=== PATIENT | female | born 1995 | race Hispanic/Latino ===

== ENCOUNTER 2018-01-06 16:46 | Observation (INO) | payer OTHER ==
[~2018-01-06] VITALS: Ht 149.9 cm; Wt 52.7 kg
[~2018-01-06 16:46] MED LIST: MICROGESTIN1 EAC1 PO
[2018-01-06 19:10] VITALS: BP 108/64
[2018-01-06 19:25] VITALS: BP 108/64
[2018-01-06] MEDS: ONDANSETRON HCL INJ 2 MG/ML VIAL IV PRN ×2 (20:06→23:56)
[2018-01-06] MEDS: MORPHINE SULFATE 2 MG/ML SYR IV PRN ×2 (20:06→23:56)
[2018-01-06] MEDS: SODIUM CHLORIDE 0.9% 1000ML 1,000 ML IV SCH ×2 (21:05→23:30)
[2018-01-06 21:13] LABS: BASOPHILS # (AUTO) 0.1 (0.0-0.1); BASOPHILS % 0.4 % (0.0-1.0); EOSINOPHILS % 0.4 % (0.0-6.0); HEMATOCRIT 38.8 % (34.2-44.1); HEMOGLOBIN 13.2 g/dL (12.0-16.0); LYMPHOCYTES # (AUTO) 1.9 (1.0-3.2); LYMPHOCYTES % 16.7 % (18.0-39.1); MEAN CORPUSCULAR HEMOGLOBIN 29.9 pg (28-32); MEAN CORPUSCULAR VOLUME 87.8 fL (81-99); MONOCYTES # (AUTO) 0.7 (0.2-0.8); NEUTROPHILS # (AUTO) 8.6 (2.1-6.9); NEUTROPHILS % 76.1 % (38.7-80.0); PLATELET COUNT 256 x10e3/uL (140-360); RED BLOOD COUNT 4.42 x10e6/uL (3.6-5.1); RED CELL DISTRIBUTION WIDTH 13.2 % (11.7-14.4)
[2018-01-06 21:22] LABS: ANION GAP 14.9 mmol/L (8-16); BLOOD UREA NITROGEN 10 mg/dL (7-26); BUN/CREATININE RATIO 14 (6-25); CALCIUM 9.4 mg/dL (8.4-10.2); CARBON DIOXIDE 22 mmol/L (22-29); CHLORIDE 107 mmol/L (98-107); CREATININE, SERUM 0.72 mg/dL (0.57-1.11); EST GLOMERULAR FILTRATION RATE > 60 ML/MIN (60-); GLUCOSE 82 mg/dL (74-118); POTASSIUM 3.9 mmol/L (3.5-5.1); SODIUM 140 mmol/L (136-145)
[2018-01-06] MEDS ORDERED: IOPAMIDOL 370 MG/ML 200 ML INFUS..BTL INJ ONE (22:48)
[2018-01-06] MEDS ORDERED: SODIUM CHLORIDE 0.9% 50ML 50 ML ONE (22:48)
--- NOTE | 2018-01-06 23:18 | Diagnostic Imaging Report ---
ADDENDUM #1 The right ovarian corpus luteum/hemorrhagic cyst measures approximately 2.1 cm. Signed by: Dr. Brice Rhodes MD on 01/08/2018 2:54 PM ORIGINAL REPORT EXAM: CT Abdomen and Pelvis WITH contrast INDICATION: Acute abdominal pain COMPARISON: None. TECHNIQUE: Abdomen and pelvis were scanned utilizing a multidetector helical scanner from the lung base to the pubic symphysis after administration of IV contrast. Coronal and sagittal reformations were obtained. Routine protocol was performed. Scan was performed when during portal venous phase. IV CONTRAST: 100 mL of Isovue-370 ORAL CONTRAST: Water RADIATION DOSE: Total DLP: 167.87 mGy*cm Estimated effective dose: (DLP x 0.015 x size factor) mSv COMPLICATIONS: None FINDINGS: LINES and TUBES: None. LOWER THORAX: Unremarkable HEPATOBILIARY: No focal hepatic lesions. No biliary ductal dilation. GALLBLADDER: No radio-opaque stones or sludge. No wall thickening. SPLEEN: No splenomegaly. PANCREAS: No focal masses or ductal dilatation. ADRENALS: No adrenal nodules KIDNEYS/URETERS: Kidneys enhance symmetrically. No hydronephrosis. No cystic or solid mass lesions. No stones. GI TRACT: No abnormal distention, wall thickening, or evidence of bowel obstruction. Appendix is normal. PELVIC ORGANS/BLADDER: There is a peripherally enhancing right ovarian corpus luteum cyst versus hemorrhagic cyst best noted on coronal series 301, image 37 and axial series 2, image 56. LYMPH NODES: No lymphadenopathy. VESSELS: Parametrial vessels and bilateral gonadal vein engorgement PERITONEUM / RETROPERITONEUM: Small amount of free fluid in the pelvis. BONES: Unremarkable. SOFT TISSUES: Unremarkable. IMPRESSION: 1. Acute abdominal pain may be related to right ovarian corpus luteum cyst versus hemorrhagic cyst. 2. The presence of a small amount pelvic fluid may suggest rupture of the cyst. 3. Findings in the parametrial and bilateral gonadal veins are suggestive of pelvic congestion syndrome Signed by: Dr. Chago Rosa M.D. on 01/06/2018 11:14 PM
[2018-01-07] VITALS (10 sets, daily range): BP systolic 101–120; BP diastolic 57–70
[2018-01-07] MEDS: ONDANSETRON HCL INJ 2 MG/ML VIAL IV PRN ×4 (06:15→22:10)
[2018-01-07] MEDS: MORPHINE SULFATE 2 MG/ML SYR IV PRN (06:15)
[2018-01-07] MEDS: HYDROMORPHONE 1MG/1ML INJ IV PRN ×3 (09:30→22:10)
--- NOTE | 2018-01-07 10:09 | Diagnostic Imaging Report ---
EXAMINATION: Head CT HISTORY: Headache, dizziness, blurry vision COMPARISON: None. TECHNIQUE: Multidetector axial images were obtained without contrast from the foramen magnum to the vertex . The images were reconstructed using brain and bone algorithms. Thin section brain images were reformatted into coronal and sagittal planes. Intravenous contrast: None. Motion/streaking artifact limits the evaluation of the skull base and posterior cranial fossa. FINDINGS: Parenchyma: 1. No abnormal densities. 2. No mass or hemorrhage. No CT evidence of acute territorial vascular insult. Extra-axial spaces:No abnormal density. No extra-axial fluid collections Brain volume: Normal for age. Ventricles: No hydrocephalus or displacement. Arteries: No density suggestive of thrombus. Dural sinuses: No abnormal density. Extra-axial spaces: No abnormal density. Foramen magnum: No mass, Chiari malformation, or basilar invagination. Sella: No obvious mass. Paranasal/mastoid sinuses: Imaged portions unremarkable. Skull/Scalp: No lytic or blastic lesions. No fractures. IMPRESSION: Normal head CT. Signed by: Dr. Dulce Ambrocio M.D. on 01/07/2018 10:05 AM
[2018-01-07] MEDS: SODIUM CHLORIDE 0.9% 1000ML 1,000 ML IV SCH ×2 (10:10→19:15)
--- NOTE | 2018-01-07 11:03 | History and Physical ---
A 22-year-old female who comes in with acute abdominal pain. HISTORY OF PRESENT ILLNESS: This is Ms. Jessica Lanier, a 22-year-old female, who was seen in the clinic about 2 days prior to admission. The patient had abdominal pain right lower quadrant and the patient came in yesterday dehydrated. Had an episode of syncope and also, episode of syncope and collapse. She had lost about 30 minutes of time according to her mother. Patient came in, was directly admitted for acute abdominal pain. PAST MEDICAL HISTORY: History of fibroadenoma of the breast. SURGICAL HISTORY: History of removal of fibroadenoma of the breast. Otherwise noncontributory. REVIEW OF SYSTEMS: Negative for chest pain. Positive for some shortness of breath. Positive for nausea and vomiting. No diarrhea, no constipation, no rectal bleeding, no hematochezia, no hematemesis. Positive for syncope and collapse. Positive for blurry vision. Positive for diplopia. No auditory changes. Positive for headaches. EXAMINATION VITAL SIGNS: Temperature is 98.3, blood pressure is 101/59, low. HEENT: Normocephalic, atraumatic. Pupils are reactive to light and accommodation. CVS: S1, S2 normal. Regular rate and rhythm. ABDOMEN: Tender with rebound tenderness to right lower quadrant. EXTREMITIES: No clubbing, no cyanosis, no edema. LABORATORY VALUES: Initial white count is 11,000, hemoglobin 13.2, hematocrit 38.8. Chemistry, sodium is 140, potassium is 3.9, BUN of 10, creatinine 0.02, EGFR of 60. IMAGING STUDIES: CT of the abdomen and pelvis that was done showed right ovarian corpus lithium cyst versus hemorrhagic cyst and small amount of pelvic fluid suggesting rupture of the cyst. Also, finding of parametrium in the bilateral gonadal veins suggestive of pelvic congestion syndrome. ASSESSMENT 1. Right abdominal pain. 2. Right ovarian cyst, status post rupture. 3. Dizziness, syncope, and collapse. Patient has been given fluids. Will continue fluids on her and do a CT of the brain to rule out any pathology. Started back on fluid and possible discharge today evening or in the morning. Further recommendation per clinical course. Continue monitor patient. The patient is advised to also follow up with an ANNUAL [employer]EN[employer]GER for continuance of her control pill. Job#: [id number] CQ
[2018-01-08] VITALS (8 sets, daily range): BP systolic 92–112; BP diastolic 50–68
[2018-01-08] MEDS: HYDROMORPHONE 1MG/1ML INJ IV PRN ×3 (04:21→15:04)
[2018-01-08] MEDS: ONDANSETRON HCL INJ 2 MG/ML VIAL IV PRN ×3 (04:21→15:03)
[2018-01-08] MEDS: SODIUM CHLORIDE 0.9% 1000ML 1,000 ML IV SCH ×3 (05:42→22:24)
[2018-01-08] MEDS ORDERED: PROMETHAZINE 12.5MG/ NACL 0.9% 12.5 MG/50 ML BAG IV PRN (16:45)
[2018-01-08] MEDS: DICYCLOMINE HCL 20 MG TAB PO SCH ×2 (17:30→22:24)
--- NOTE | 2018-01-08 18:04 | Consultation ---
DATE OF CONSULTATION: January 08, 2018 REASON FOR CONSULTATION: The patient is a 22-year-old, 1, para 1 with last menstrual period on December 21, 2017 on no contraception who presents with a history of right lower quadrant pain for one week and nausea for one week. She has been taking Zofran with no relief and the pain had not improved, and she came to the hospital and was admitted for observation. She had a CT scan which revealed acute abdominal pain which may be related to right ovarian corpus luteum cyst versus hemorrhagic cyst, a small amount of pelvic fluid suggestive of rupture of the ovarian cyst, and findings in the perimetrium bilateral gonadal veins suggestive of pelvic congestion syndrome. PAST MEDICAL HISTORY: Remarkable for irritable bowel syndrome and question of endometriosis. PAST SURGICAL HISTORY: Remarkable for breast biopsy with excision of fibroadenoma of the breast approximately 3 years ago. ALLERGIES: KEFLEX GIVES HER HIVES. CURRENT MEDICATIONS: Prior to hospitalization, Zofran only. OB HISTORY: The patient had one full-term normal spontaneous vaginal delivery 4 years ago at [facility]. She denies any complications. [employer] EM[employer] REPRESENTATIVE HISTORY: Remarkable for taking Avixu-Rtz-Coderw Lo to help suppress cysts; however, she did not tolerate that medication because of nausea. PHYSICAL EXAMINATION VITAL SIGNS: Her latest temperature is 97.5, pulse 80, respirations 16, blood pressure 112/60. LUNGS: Clear. CARDIOVASCULAR: Regular rate and rhythm. There is mild right flank tenderness. There is mild right lower quadrant tenderness with no rebound. Bowel sounds are active to slightly hyperactive. PELVIC EXAM: Within normal limits. Cervix is parous without lesions. Uterus is normal size, anteverted, with mild cervical motion tenderness. Adnexa on the left side nontender, no masses. On the right side, mild tenderness, no palpable masses. As stated before, CT scan shows right corpus luteum versus hemorrhagic cyst measuring 2.1 cm. LABORATORY DATA: White count 11.3, hemoglobin 13.2, hematocrit 38.8, platelets 256,000, 76 neutrophils and 17 lymphocytes. Urinalysis not done. Chemistry: Sodium 140, potassium 3.9, chloride 107, bicarb 22, creatinine 0.72, glucose 82, BUN 10. IMPRESSION: Abdominal pain with nausea in a patient with history of ovarian cyst pain and endometriosis, but also history of irritable bowel syndrome. PLAN: I will get followup CBC, BMP or CMP and urinalysis. I suggest a trial of Bentyl for her IBS in case that is what is causing her problem. I would also recommend adding some Toradol 30 mg IV q.6 h. in addition to the Dilaudid to see if that will relieve her pain. Suggest a pelvic ultrasound to see what is happening with the cyst on the ovary. Thank you very much for consultation. If there are any questions, please do not hesitate to call me. Job#: [id number]
--- NOTE | 2018-01-08 19:21 | Diagnostic Imaging Report ---
EXAM: Transabdominal and Transvaginal Pelvic Ultrasound INDICATION: \S\abdominal pain \S\Y COMPARISON: CT abdomen and pelvis 01/06/2018 TECHNIQUE: Grayscale transverse and sagittal transabdominal and transvaginal images were obtained of the pelvis. Transvaginal imaging was medically necessary to better evaluate the endometrium and the adnexa. CLINICAL HISTORY: 22 year old A0; last menstrual period: 12/21/2017. FINDINGS: Uterus Orientation: Normal Size: 7.5 x 4.3 x 4.6 cm, Normal Mass: None. Prominent vessels surrounding the uterus. Cervix: Normal Endometrium: Thickness: 0.9 cm, Normal. Appearance: Homogeneous echotexture without focal thickening. Right ovary: Size: 2.8 x 2.5 x 2.7 cm Mass/Cyst: Few follicles measuring less than 2 cm Left ovary: Size: 2.5 x 2.0 x 1.9 cm Mass/Cyst: Few follicles measuring less than 2 cm Adnexa: Normal Cul-de-sac: No free fluid IMPRESSION: Unremarkable pelvic ultrasound exam. Previously noted right corpus luteal cyst has resolved. Signed by: Dr. Jillian Hsieh M.D. on 01/08/2018 7:18 PM
[2018-01-08] MEDS: KETOROLAC TROMETHAMINE 30 MG/ML VIAL IV PRN (23:18)
[2018-01-09] VITALS (7 sets, daily range): BP systolic 93–113; BP diastolic 51–57
[2018-01-09] MEDS: SODIUM CHLORIDE 0.9% 1000ML 1,000 ML IV SCH ×3 (03:45→19:13)
[2018-01-09 08:10] LABS: BASOPHILS % 0.4 % (0.0-1.0); EOSINOPHILS # (AUTO) 0.2 (0.0-0.4); EOSINOPHILS % 4.4 % (0.0-6.0); HEMATOCRIT 34.8 % (34.2-44.1); HEMOGLOBIN 11.5 g/dL (12.0-16.0); LYMPHOCYTES # (AUTO) 1.2 (1.0-3.2); LYMPHOCYTES % 22.6 % (18.0-39.1); MEAN CORPUSCULAR HEMOGLOBIN 29.1 pg (28-32); MEAN CORPUSCULAR VOLUME 88.1 fL (81-99); MONOCYTES # (AUTO) 0.5 (0.2-0.8); MONOCYTES % 8.6 % (4.4-11.3); NEUTROPHILS # (AUTO) 3.3 (2.1-6.9); NEUTROPHILS % 63.8 % (38.7-80.0); PLATELET COUNT 231 x10e3/uL (140-360); RED BLOOD COUNT 3.95 x10e6/uL (3.6-5.1); RED CELL DISTRIBUTION WIDTH 13.2 % (11.7-14.4)
[2018-01-09 08:32] LABS: ANION GAP 11.2 mmol/L (8-16); BLOOD UREA NITROGEN 6 mg/dL (7-26); BUN/CREATININE RATIO 8 (6-25); CALCIUM 8.8 mg/dL (8.4-10.2); CARBON DIOXIDE 25 mmol/L (22-29); CHLORIDE 107 mmol/L (98-107); CREATININE, SERUM 0.71 mg/dL (0.57-1.11); EST GLOMERULAR FILTRATION RATE > 60 ML/MIN (60-); GLUCOSE 79 mg/dL (74-118); POTASSIUM 4.2 mmol/L (3.5-5.1); SODIUM 139 mmol/L (136-145)
[2018-01-09] MEDS: DICYCLOMINE HCL 20 MG TAB PO SCH ×4 (08:32→20:22)
[2018-01-09] MEDS: HYDROMORPHONE 1MG/1ML INJ IV PRN (11:57)
[2018-01-09] MEDS: ONDANSETRON HCL INJ 2 MG/ML VIAL IV PRN (18:38)
[2018-01-09] MEDS: KETOROLAC TROMETHAMINE 30 MG/ML VIAL IV PRN (22:28)
[2018-01-10] VITALS: BP 92/51
[2018-01-10 04:00] VITALS: BP 100/51
[2018-01-10] MEDS: DICYCLOMINE HCL 20 MG TAB PO SCH (08:20)
[2018-01-10 08:26] VITALS: BP 113/70
[2018-01-10] MEDS ORDERED: diclofenac PO (09:00)
== END 2018-01-10 09:35 | disposition home or self-care (01) ==
LOC: IMCU 19:00
PROVIDERS: ADMIT Family Medicine; ATTEND Family Medicine
DX: N83.11 Corpus luteum cyst of right ovary (principal); K58.9 Irritable bowel syndrome, unspecified; E86.0 Dehydration
CPT/HCPCS: 36415 ×2; 70450; 74177; 76830; 80048 ×2; 81025; 85025 ×2; 96361; G0378 ×5; J1170 ×3; J1885 ×2; J2270 ×2; J2405 ×4; J7030 ×3; Q9967

== ENCOUNTER 2019-12-14 08:43 | Emergency (ER) | payer OTHER ==
[~2019-12-14] VITALS: Ht 149.9 cm; Wt 52.6 kg
[~2019-12-14 08:43] MED LIST changes: +diclofenac PO
--- OUTSIDE RECORDS SUMMARY | 2019-12-14 09:02 | XMS REPORT | Continuity of Care Document ---
Author Author [facility] t Organization [facility] Address [address] [place] [address] Phone Unavailable Care Team Providers Care Diesel Dinkey Operator Name Role Phone Ming JIANG MD PCP SAMI CARDONA Attphys Unavailable Ming JIANG Attphys Unavailable Ming JIANG Admphys Unavailable Payers Payer Name Policy Type Policy Number Effective Date Expiration Date Ming Medina o [id number] 2019 00:00:00 [facility] Umr Ppo [id number] 2013 00:00:00 [facility] Problems This patient has no known problems. Allergies, Adverse Reactions, Alerts Allergy Name Allergy Type Status Severity Reaction(s) Onset Date Inacti ve Date Treating Clinician Comments Source cephalexin DA Active AL 2018-12-25 00:00:00 [facility] Cephalexin Allergy to Substance Active 2018-01-06 00:00:00 [facility] No Known Allergies DA Active U 2015-09-13 00:00:00 [facility] Medications Ordered Medication Name Filled Medication Name Start Date Stop Da te Current Medication? Ordering Clinician Indication Dosage Frequency Signature (SIG) Comments Components Source Diclofenac Diclofenac Yes 75 Twice A Day [facility] Norethindrone A-E Estradiol (Microgestin) 1 Each Table t Norethindrone A-E Estradiol (Microgestin) 1 Each Tablet Yes 1 Daily [facility] Procedures Procedure Date / Time Performed Performing Clinician Sour e X-ray of chest, two views 2019-07-08 00:00:00 GEORGIE COLINDRES [facility] Encounters Start Date/Time End Date/Time Encounter Type Admission Type [facility] Care Department Encounter ID Source 2019-07-08 12:34:00 2019-07-08 15:40:00 Departed Emergency Room 1 SAMI CARDONA [facility] [id number] [facility] 2019-01-05 10:52:00 2019-01-05 10:52:00 Outpatient [facility]BL [id number] [facility] 2018-12-28 14:45:00 2018-12-28 14:45:00 Outpatient MHBL [facility]BL [id number] 2018-11-16 20:19:00 2018-11-16 20:19:00 Outpatient MHBL MHBL [id number] [facility] 2018-11-16 17:47:00 2018-11-16 17:47:00 Emergency E MHBL MHBL [id number] [facility] 2018-11-16 12:45:00 2018-11-16 12:45:00 Outpatient MHBL MHBL [id number] 2018-01-06 19:00:00 2018-01-10 09:35:00 Discharged Inpatient (obs) 3 NALINI JIANG [facility] [id number] [facility] Results Test Description Test Time Test Comments Results Result Comments Source Influenza Virus Types A,B Antigen 2019-07-08 14:41:00 Test Item Influenza Virus Types A,B Antigen (test code = 01664-9) NEGATIVE NEGATIVE [facility] 2 [id number] 14:36:00 [facility] [address] [place] [address] Patient Name: ALL SUMMERS MR #: [id number] : 1995 Age/Sex: 23/F Req #: [id number] Adm Physician: Ordered by: GEORGIE COLINDRES SCAFFOLD SETTER Report #: [id number] Location: ER Room/Bed: Procedure: 1227-00 56 DX/CHEST 2 VIEWS Exam Date: 07/08/19 Exam Time: 1 425 REPORT STATUS: Signed Chest, PA and lateral. History: Cough, chest pain. Comparison: None availabl e. Discussion: The cardiomediastinal silhouette and pulmonary vasculature are within normal limits. There is minimal left basilar atelectasis. No focal consolidation, sizable pleural effusion, or pneumothorax. There are no acute osseous abnormalities. IMPRESSION: No radiographic evidence of acute ca rdiopulmonary abnormality. Signed by: Fidel Almaguer MD on 07/08/2019 2: 37 PM Dictated By: FIDEL ALMAGUER MD 1437 Transcribed By: LAVELLE on 07/08/19 1437 CO PY TO: GEORGIE COLINDRES NP Group A Streptococcus Csnurq2449-84-90 14:31:00* Test Item Value Reference Range Interpretation Comments Group A Streptococcus Screen (test code = 58416-8) NEGATIVE NEG ATIVE [facility] [id number] 14:12:00* Test Item Value Reference Range Interpretation Comments Urine WBC (test code = 5821-4) NONE 0-5 [facility] [id number] 14:12:00* Test Item Value Reference Range Interpretation Comments Urine RBC (test code = 64849-1) NONE 0-5 [facility] Pqlwloga9345-79-01 14:12:00* Test Item Value Reference Range Interpretation Comments Urine Bacteria (test code = 04805-9) NONE NONE [facility] Epithelial [id number] 14:12:00 * Test Item Value Reference Range Interpretation Comments Urine Epithelial Cells (test code = 85870-3) FEW NONE [facility] Lyuqt9638-46-33 14:00:00* Test Item Value Reference Range Interpretation Comments Sodium Level (test code = 2951-2) 138 136-145 [facility] Fhhjd3718-28-82 14:00:00* Test Item Value Reference Range Interpretation Comments Potassium Level (test code = 2823-3) 3.8 3.5-5.1 [facility] CenterChloride Bunos9760-46-88 14:00:00* Test Item Value Reference Range Interpretation Comments Chloride Level (test code = 2075-0) 104 98-107 [facility] CenterCarbon Dioxide Fakdw8820-62-33 14:00:00* Test Item Value Reference Range Interpretation Comments Carbon Dioxide Level (test code = 2028-9) 23 22-29 [facility] CenterAnion Jta2070-71-23 14:00:00* Test Item Value Reference Range Interpretation Comments Anion Gap (test code = 54971-6) 14.8 8-16 [facility] Urea Viimwtlx3108-04-46 14:00:00* Test Item Value Reference Range Interpretation Comments Blood Urea Nitrogen (test code = 3094-0) 7 7-26 [facility] CenterCreatinine2019-12-27 14:00:00* Test Item Value Reference Range Interpretation Comments Creatinine (test code = 2160-0) 0.77 0.57-1.11 [facility] CenterBUN/Creatinine Nabfj5704-45-62 14:00:00* Test Item Value Reference Range Interpretation Comments BUN/Creatinine Ratio (test code = 3097-3) 9 6-25 [facility] CenterEstimat Glomerular Filtration Rate 2019-07-08 14:00:00* Test Item Value Reference Range Interpretation Comments Estimat Glomerular Filtration Rate (test code = 971482011) > 60 >60 Ranges were taken from the National Kidney Disease Education Program and the [facility] literature.Reference ranges:60 or greater: Irehio61-76 ( for 3 consecutive months): Chronic kidney disease 15 or less: Kidney failureLaredo Medical CenterGlucose Zinwl9007-89-69 14:00:00* Test Item Value Reference Range Interpretation Comments Glucose Level (test code = DRD0570) 100 74-118 [facility] CenterCalcium Sirqc9230-27-15 14:00:00* Test Item Value Reference Range Interpretation Comments Calcium Level (test code = 54338-8) 9.3 8.4-10.2 [facility] CenterTotal Sozbrgagp2066-73-40 14:00:00* Test Item Value Reference Range Interpretation Comments Total Bilirubin (test code = 1975-2) 0.3 0.2-1.2 [facility] CenterAspartate Amino Transf (AST/SGOT) 2019-07-08 14:00:00* Test Item Value Reference Range Interpretation Comments Aspartate Amino Transf (AST/SGOT) (test code = Aspartate Amino Transf (AST/SGOT)) 25 5-34 [facility] CenterAlanine Aminotransferase (ALT/SGPT) 2019-07-08 14:00:00* Test Item Value Reference Range Interpretation Comments Alanine Aminotransferase (ALT/SGPT) (test code = 1742-6) 36 0-55 [facility] CenterTotal Okfrlkf2569-08-30 14:00:00* Test Item Value Reference Range Interpretation Comments Total Protein (test code = 2885-2) 8.6 6.5-8.1 H [facility] CenterAlbumin2019-12-27 14:00:00* Test Item Value Reference Range Interpretation Comments Albumin (test code = 1751-7) 4.2 3.5-5.0 [facility] CenterGlobulin2019-12-27 14:00:00* Test Item Value Reference Range Interpretation Comments Globulin (test code = 40208-2) 4.4 2.3-3.5 H [facility] CenterAlbumin/Globulin Adfqf5057-44-41 14:00:00 * Test Item Value Reference Range Interpretation Comments Albumin/Globulin Ratio (test code = 1759-0) 1.0 0.8-2.0 [facility] CenterAlkaline Jigqmizjxap4391-82-28 14:00:00* Test Item Value Reference Range Interpretation Comments Alkaline Phosphatase (test code = 6768-6) 142 40-150 [facility] CenterUrine Mzkgm5485-80-21 13:45:00* Test Item Value Reference Range Interpretation Comments Urine Color (test code = 5778-6) YELLOW YELLOW [facility] CenterUrine Rikemmf8716-66-82 13:45:00* Test Item Value Reference Range Interpretation Comments Urine Clarity (test code = 86959-3) CLEAR CLEAR [facility] Specific Wofkwtl0725-77-04 13:45:00 * Test Item Value Reference Range Interpretation Comments Urine Specific [place] (test code = 5811-5) 1.020 1.010-1.02 5 [facility] CenterU[facility] mZ8722-67-84 13:45:00* Test Item Value Reference Range Interpretation Comments Urine pH (test code = 60985-4) 8.5 5-7 [facility] Leukocyte Znhbyfld1623-64-70 13:45:00* Test Item Value Reference Range Interpretation Comments Urine Leukocyte Esterase (test code = 15631-6) NEGATIVE NEGATIV E [facility] Nasnpel8155-20-68 13:45:00* Test Item Value Reference Range Interpretation Comments Urine Nitrite (test code = 28156-0) NEGATIVE NEGATIVE [facility] CenterU[facility] Lwcrhaq9517-63-98 13:45:00* Test Item Value Reference Range Interpretation Comments Urine Protein (test code = 11474-4) TRACE NEGATIVE H [facility] Glucose (UA)2019-07-08 13:45:00* Test Item Value Reference Range Interpretation Comments Urine Glucose (UA) (test code = 83354-8) NEGATIVE NEGATIVE [facility] CenterU[facility] Bqmpagt5267-19-49 13:45:00* Test Item Value Reference Range Interpretation Comments Urine Ketones (test code = 31673-6) NEGATIVE NEGATIVE [facility] Xbnliawnfxny4300-19-28 13:45:00* Test Item Value Reference Range Interpretation Comments Urine Urobilinogen (test code = 74186-7) 1 0.2-1 [facility] Center[facility] Jzibaotst8909-78-89 13:45:00* Test Item Value Reference Range Interpretation Comments Urine Bilirubin (test code = 1977-8) NEGATIVE NEGATIVE [facility] CenterUrine Bphkf6447-88-05 13:45:00* Test Item Value Reference Range Interpretation Comments Urine Blood (test code = 83815-2) TRACE NEGATIVE [facility] CenterU[facility] Sict0518-41-75 13:44:00* Test Item Value Reference Range Interpretation Comments Urine Test (test code = 2106-3) NEGATIVE NEGATIVE [facility] CenterWhite Blood Xpgqm1545-52-31 13:43:00* Test Item Value Reference Range Interpretation Comments White Blood Count (test code = 6690-2) 8.86 4.8-10.8 [facility] CenterRed Blood Tdyvk3924-42-78 13:43:00* Test Item Value Reference Range Interpretation Comments Red Blood Count (test code = 789-8) 4.54 3.6-5.1 [facility] CenterHemoglobin2019-12-27 13:43:00* Test Item Value Reference Range Interpretation Comments Hemoglobin (test code = 17322-8) 11.9 12.0-16.0 L [facility] CenterHematocrit2019-12-27 13:43:00* Test Item Value Reference Range Interpretation Comments Hematocrit (test code = 4544-3) 36.4 34.2-44.1 [facility] CenterMean Corpuscular Cujhmv2828-93-26 13:43:00* Test Item Value Reference Range Interpretation Comments Mean Corpuscular Volume (test code = 787-2) 80.2 81-99 L [facility] CenterMean Corpuscular Moqtzbpfnr6787-71-98 13:43:00* Test Item Value Reference Range Interpretation Comments Mean Corpuscular Hemoglobin (test code = 785-6) 26.2 28-32 L [facility] CenterMean Corpuscular Hemoglobin Concent 2019-07-08 13:43:00* Test Item Value Reference Range Interpretation Comments Mean Corpuscular Hemoglobin Concent (test code = 786-4) 32.7 31-35 [facility] CenterRed Cell Distribution Vcokh2981-52-74 13:43:00* Test Item Value Reference Range Interpretation Comments Red Cell Distribution Width (test code = 42789-2) 14.8 11.7 -14.4 H [facility] CenterPlatelet Ichyh1732-74-54 13:43:00* Test Item Value Reference Range Interpretation Comments Platelet Count (test code = 777-3) 457 140-360 H [facility] CenterNeutrophils (%) (Auto)2019-07-08 13:43:00 * Test Item Value Reference Range Interpretation Comments Neutrophils (%) (Auto) (test code = 76491-0) 84.5 38.7-80.0 H [facility] CenterLymphocytes (%) (Auto)2019-07-08 13:43:00 * Test Item Value Reference Range Interpretation Comments Lymphocytes (%) (Auto) (test code = 736-9) 5.1 18.0-39.1 L [facility] CenterMonocytes (%) (Auto)2019-07-08 13:43:00* Test Item Value Reference Range Interpretation Comments Monocytes (%) (Auto) (test code = 5905-5) 8.9 4.4-11.3 [facility] CenterEosinophils (%) (Auto)2019-07-08 13:43:00 * Test Item Value Reference Range Interpretation Comments Eosinophils (%) (Auto) (test code = 713-8) 0.5 0.0-6.0 [facility] CenterBasophils (%) (Auto)2019-07-08 13:43:00* Test Item Value Reference Range Interpretation Comments Basophils (%) (Auto) (test code = 706-2) 0.7 0.0-1.0 [facility] CenterIM GRANULOCYTES %2019-07-08 13:43:00* Test Item Value Reference Range Interpretation Comments IM GRANULOCYTES % (test code = IM GRANULOCYTES %) 0.3 0.0- 1.0 [facility] CenterNeutrophils # (Auto)2019-07-08 13:43:00* Test Item Value Reference Range Interpretation Comments Neutrophils # (Auto) (test code = 751-8) 7.5 2.1-6.9 H [facility] CenterLymphocytes # (Auto)2019-07-08 13:43:00* Test Item Value Reference Range Interpretation Comments Lymphocytes # (Auto) (test code = 35883-2) 0.5 1.0-3.2 L [facility] CenterMonocytes # (Auto)2019-07-08 13:43:00* Test Item Value Reference Range Interpretation Comments Monocytes # (Auto) (test code = 742-7) 0.8 0.2-0.8 [facility] CenterEosinophils # (Auto)2019-07-08 13:43:00* Test Item Value Reference Range Interpretation Comments Eosinophils # (Auto) (test code = 711-2) 0.0 0.0-0.4 [facility] CenterBasophils # (Auto)2019-07-08 13:43:00* Test Item Value Reference Range Interpretation Comments Basophils # (Auto) (test code = 704-7) 0.1 0.0-0.1 [facility] CenterAbsolute Immature Granulocyte (auto 2019-07-08 13:43:00* Test Item Value Reference Range Interpretation Comments Absolute Immature Granulocyte (auto (ofelia t code = Absolute Immature Granulocyte (auto) 0.03 0-0.1 [facility] CenterRAPID PLASMA [id number] 11:28:00* Test Item Value Reference Range Interpretation Comments RAPID PLASMA REAGIN (test code = RPR) NONREACTIVE NONREACTIVE AG HEPATITIS B [id number] 11:28:00* Test Item Value Reference Range Interpretation Comments AG HEPATITIS B SURFACE (test code = HBSAG) NON REACTIVE INDEX NonRe active AB HIV 1 11:28:00* Test Item Value Reference Range Interpretation Comments AB HIV 1 2 (test code = IQL28ZX) NONREACTIVE INDEX NONREACTIVE [id number] 09:13:00* Test Item Value Reference Range Interpretation Comments AMYLASE (test code = MEERA) 46 UNITS/L 25-115 N CDRSWN1748-13-29 09:13:00* Test Item Value Reference Range Interpretation Comments LIPASE (test code = LIP) 115 IUnit/L 73-393 N CBC W/AUTO EKYT8568-02-44 09:00:00* Test Item Value Reference Range Interpretation Comments WHITE BLOOD CELL (test code = WBC) 6.22 x10 3/uL 4.5-11.0 N RED BLOOD CELL (test code = RBC) 3.02 x10 6/uL 3.54-5.02 L HEMOGLOBIN (test code = HGB) 8.1 g/dL 11.0-15.0 L HEMATOCRIT (test code = HCT) 25.2 % 33.0-45.0 L MEAN CELL VOLUME (test code = MCV) 83.4 fL 81.0-99.0 N MEAN CELL HGB (test code = MCH) 26.8 pg 27.0-33.0 L MEAN CELL HGB CONCETRATION (test code = MCHC) 32.1 g/dL 33.0-37. 0 L RED CELL DISTRIBUTION WIDTH CV (test code = RDW) 13.3 % 11.5- 14.5 N RED CELL DISTRIBUTION WIDTH SD (test code = RDW-SD) 40.5 fL 37 .0-54.0 N PLATELET COUNT (test code = PLT) 253 x10 3/uL 150-400 N MEAN PLATELET VOLUME (test code = MPV) 11.0 fL 7.0-9.0 H NEUTROPHIL % (test code = NT%) 67.3 % 56.0-77.0 N IMMATURE GRANULOCYTE % (test code = IG%) 0.6 % 0.0-2.0 N LYMPHOCYTE % (test code = LY%) 23.2 % 14.0-32.0 N MONOCYTE % (test code = MO%) 5.6 % 4.8-9.0 N EOSINOPHIL % (test code = EO%) 2.7 % 0.3-3.7 N BASOPHIL % (test code = BA%) 0.6 % 0.0-2.0 N NUCLEATED RBC % (test code = NRBC%) 0.0 % 0-0 N NEUTROPHIL # (test code = NT#) 4.18 x10 3/uL 2.0-7.6 N IMMATURE GRANULOCYTE # (test code = IG#) 0.04 x10 3/uL 0.00-0.03 H LYMPHOCYTE # (test code = LY#) 1.44 x10 3/uL 1.0-3.8 N MONOCYTE # (test code = MO#) 0.35 x10 3/uL 0.1-0.8 N EOSINOPHIL # (test code = EO#) 0.17 x10 3/uL 0.0-0.2 N BASOPHIL # (test code = BA#) 0.04 x10 3/uL 0.0-0.2 N NUCLEATED RBC # (test code = NRBC#) 0.00 x10 3/uL 0.0-0.1 N MANUAL DIFF REQUIRED (test code = MDIFF) NO RAPID PLASMA [id number] 15:03:00* Test Item Value Reference Range Interpretation Comments RAPID PLASMA REAGIN (test code = RPR) NONREACTIVE AG HEPATITIS B [id number] 15:03:00* Test Item Value Reference Range Interpretation Comments AG HEPATITIS B SURFACE (test code = HBSAG) NON REACTIVE INDEX NonRe active AB HIV 1 15:03:00* Test Item Value Reference Range Interpretation Comments AB HIV 1 2 (test code = RMO44ZH) NONREACTIVE INDEX NONREACTIVE - US PREG AFTER [id number] 14:59:00 Name: ALL SUMMERS [facility] : 1995 Age/S: 23 / F [address] [place] [address] Unit #: [id number] Loc: [place] [address] Phys: Radha Veronica MD Acct: [id number] Dis Date: Status: ADM IN PHONE #: [phone] Exam Date: 12/25/2018 1443 FAX #: [phone] Reason: OB Labor ADM EXAMS: CPT CODE: [id number] US PREG AFTER TRI 18117 ULTRASOUND; THIRD TRIMESTER: HISTORY: labor. COMPARISON EXAMS: No recent pertinent exams for comparison. TECHNIQUE: Sonographic evaluation was performed using high resolution B-mode, pulse and color Doppler imaging. FINDINGS: A single living fetus is identified in cephalic presentation with cardiac activity 150 bpm. The placenta is grade 1, positioned anteriorly, and there is no evidence of placenta previa. Evaluation of the head, spine and extremities was limited. No anatomical abnormality identified. There was a small volume of fluid in the perihepatic space. No evidence of skin thickening or pleural effusions. Cervical length is 5.4 cm. Markedly distended right adnexal venous structures are identified, greater than normally seen during . Umbilical artery SD ratio is 2.8 with good diastolic flow. MEASUREMENTS/GESTATIONAL AGE: Clinical: LMP= GA= 27wks 5days TROY= 26 wks 5 days ME AN MA BPD: 6.46 cm 26 wks 1 days HC : 23.97 cm 26 wks 0 days AC: 24.17 cm 28 wks 3 days FL: 4.80 cm 26 wks 1 days EFW: 1049 +/- 157 gm EFW - GP: 21.6% FL/AC: 19.9 (20.0 -24.0) F L/BPD: 74.3 (71.0 -87.0) FL/HC: 20.03 (18.6-20.4) HC/AC: 0.99 (1.05-1.22) IMPRESSION: 1. Single living intrauterine gestation with composite ultrasound age of 26 weeks 5 days. This corresponds closely to the patient's age by dates. No prior exams to evaluate interval growth. 2. Cervical length is 5.4 cm. PAGE 1 Signed Report (CONTINUED) Name: ALL MENDOZA [facility] : [birth year] Age/S: 23 / F [address] [place] [address] Unit #: [id number] Loc: [place] [address] Phys: Radha Veronica MD Acct: [id number] Dis Date: Status: ADM IN PHONE #: Exam Date: 12/25/2018 4593 FAX #: [phone] Reason: OB Labor ADM EXAMS: CPT CODE: [id number] US PREG AFTER 1ST TRI 64467 <Continued> 3. Small amount of perihepatic fluid in the abdomen. No evidence of skin thickening or pleural effusions. Etiology of the small volume ascites is unknown. 4. Minimally abnormal FL/AC and HC/AC ratios. 5. Pronounced venous congestion in the right adnexal region. The degree of venous distention suggests pelvic venous congestion. 6. Limited evaluation of anatomy as described above. SL:01 at 4610 Reported and signed by: Lonnie Childs M.D. CC: Radha Veronica Technologist: Lizzy Squires RDMS(AB) Trnscb Date/Time: 12/25/2018 (7297) Anne Orig Print D/T: S: 12/25/2018 (7032) Probe: PAGE 2 Signed Report CBC W/AUTO [id number] 14:35:00* Test Item Value Reference Range Interpretation Comments WHITE BLOOD CELL (test code = WBC) 7.80 x10 3/uL 4.5-11.0 N RED BLOOD CELL (test code = RBC) 3.17 x10 6/uL 3.54-5.02 L HEMOGLOBIN (test code = HGB) 8.5 g/dL 11.0-15.0 L HEMATOCRIT (test code = HCT) 26.0 % 33.0-45.0 L MEAN CELL VOLUME (test code = MCV) 82.0 fL 81.0-99.0 N MEAN CELL HGB (test code = MCH) 26.8 pg 27.0-33.0 L MEAN CELL HGB CONCETRATION (test code = MCHC) 32.7 g/dL 33.0-37. 0 L RED CELL DISTRIBUTION WIDTH CV (test code = RDW) 13.1 % 11.5- 14.5 N RED CELL DISTRIBUTION WIDTH SD (test code = RDW-SD) 39.1 fL 37 .0-54.0 N PLATELET COUNT (test code = PLT) 276 x10 3/uL 150-400 N MEAN PLATELET VOLUME (test code = MPV) 11.4 fL 7.0-9.0 H NEUTROPHIL % (test code = NT%) 76.7 % 56.0-77.0 N IMMATURE GRANULOCYTE % (test code = IG%) 0.5 % 0.0-2.0 N LYMPHOCYTE % (test code = LY%) 15.0 % 14.0-32.0 N MONOCYTE % (test code = MO%) 5.8 % 4.8-9.0 N EOSINOPHIL % (test code = EO%) 1.5 % 0.3-3.7 N BASOPHIL % (test code = BA%) 0.5 % 0.0-2.0 N NUCLEATED RBC % (test code = NRBC%) 0.0 % 0-0 N NEUTROPHIL # (test code = NT#) 5.98 x10 3/uL 2.0-7.6 N IMMATURE GRANULOCYTE # (test code = IG#) 0.04 x10 3/uL 0.00-0.03 H LYMPHOCYTE # (test code = LY#) 1.17 x10 3/uL 1.0-3.8 N MONOCYTE # (test code = MO#) 0.45 x10 3/uL 0.1-0.8 N EOSINOPHIL # (test code = EO#) 0.12 x10 3/uL 0.0-0.2 N BASOPHIL # (test code = BA#) 0.04 x10 3/uL 0.0-0.2 N NUCLEATED RBC # (test code = NRBC#) 0.00 x10 3/uL 0.0-0.1 N MANUAL DIFF REQUIRED (test code = MDIFF) NO - US ABDOMEN [id number] 14:35:00 Name: ALL SUMMERS [facility] : 1995 Age/S: 23 / F [address] [place] [address] Unit #: [id number] Loc: [place] [address] Phys: Radha Veronica MD Acct: [id number] Dis Date: Status: ADM IN PHONE #: [phone] Exam Date: 12/25/2018 1444 FAX #: [phone] Reason: abdominal pain EXAMS: CPT CODE: [id number] US ABDOMEN COMPLETE 15841 PROCEDURE: ABDOMINAL ULTRASOUND INDICATION: Known . Acute abdominal pain. COMPARISON: None TECHNIQUE: Sonographic evaluation of the abdomen was performed with supplemental color and pulsed Doppler. FINDINGS: LIVER: The liver is normal in size, contour and morphology with normal parenchymal echogenicity. GALLBLADDER: Some echogenic sludge is identified in the dependent portion of the gallbladder. A few focal areas of echogenicity are present within the sludge, without definite acoustical shadowing. The presence of the sludge decreases sensitivity for detection of small stones. The hydroelectric plant operator reports that the patient was not tender over the gallbladder at the time of scanning. BILE DUCTS: No biliary dilatation. The common duct measures 3 mm. PANCREAS: The visualized pancreas appears normal. SPLEEN: The spleen is normal. Accessory splenic tissue is noted at the splenic hilum. KIDNEYS: Both kidneys are normal in overall size and shape. Mild bilateral hydronephrosis is identified with distention of the proximal ureters. AORTA AND INFERIOR VENA CAVA: Visualized portions appear normal. ADDITIONAL COMMENTS: The bladder has a normal appearance. Doppler analysis shows bilateral ureteral jets from each ureteral orifice. No evidence of ascites. IMPRESSION: 1. Gallbladder sludge as described above. This decreases sensitivity for detecting small stones. 2. No evidence of biliary obstruction. 3. Mild bilateral hydronephrosis. Doppler ureteral jets were i dentified from each ureteral orifice, suggesting that the etiology is ph ysiological hydronephrosis of . PAGE 1 Lili d Report (CONTINUED) Name: ALL SUMMERS [facility] : 1995 Age/S: 23 / F [address] [place] [address] Unit #: [id number] [facility] [address] Phys: Radha Veronica MD Acct: [id number] Dis Date: Status: ADM IN PHONE #: [phone] Exam Date: 12/25/2018 1 444 FAX #: [phone] Reason: abdominal pain EXAMS: CPT CODE: [id number] US ABDOMEN COMPLETE 75437 <Continued> 4. Otherwise negative abdominal ultrasound. SL:01 at 1435 Reported and signed by: Lonnie Childs M.D. CC: Radha Veronica Technologist: Lizzy Squires RDMS(AB) Trnscb Date/Time: 12/25/2018 (1435) Anne Orig Print D/T: S: 12/25/2018 (1063) Probe: PAGE 2 Signed Report RAPID PLASMA REAGIN 2018-12-25 13:22:00* Test Item Value Reference Range Interpretation Comments RAPID PLASMA REAGIN (test code = RPR) NONREACTIVE AG HEPATITIS B [id number] 13:22:00* Test Item Value Reference Range Interpretation Comments AG HEPATITIS B SURFACE (test code = HBSAG) NON REACTIVE INDEX NonRe active AB HIV 1 13:22:00* Test Item Value Reference Range Interpretation Comments AB HIV 1 2 (test code = JXA35AG) INDEX NONREACTIVE COMPREHENSIVE METABOLIC [id number] 12:34:00* Test Item Value Reference Range Interpretation Comments SODIUM (test code = NA) 137 mEq/L 134-147 N POTASSIUM (test code = K) 3.4 mEq/L 3.4-5.0 N CHLORIDE (test code = CL) 106 mEq/L 100-108 N CARBON DIOXIDE (test code = CO2) 23 mEq/L 21-33 N ANION GAP (test code = GAP) 11 0-20 N GLUCOSE (test code = GLU) 77 mg/dL 70-110 N BLOOD UREA NITROGEN (test code = BUN) 6 mg/dL 7-18 L GLOMERULAR FILTRATION RATE (test code = GFR) 194.5 110-120 H Units of measure = ml/min/1.73 m2 CREATININE (test code = CREAT) 0.4 mg/dL 0.6-1.3 L TOTAL PROTEIN (test code = PROT) 7.1 g/dL 6.4-8.2 N ALBUMIN (test code = ALB) 2.70 g/dL 3.4-5.0 L CALCIUM (test code = CA) 7.9 mg/dL 8.0-10.5 L BILIRUBIN TOTAL (test code = BILT) 0.40 mg/dL 0.0-1.0 N SGOT/AST (test code = AST) 12 IUnit/L 15-37 L SGPT/ALT (test code = ALT) 16 IUnit/L 15-65 N ALKALINE PHOSPHATASE TOTAL (test code = ALKP) 132 IUnit/L 20-125 H URIC [id number] 12:34:00* Test Item Value Reference Range Interpretation Comments URIC ACID (test code = URIC) 2.5 mg/dL 2.6-7.2 L LACTIC DEHYDROGENASE(LDH)2018-12-25 12:34:00* Test Item Value Reference Range Interpretation Comments LACTIC DEHYDROGENASE(LDH) (test code = LDH) 152 IUnits/L 84-246 N [id number] 12:34:00* Test Item Value Reference Range Interpretation Comments FIBRONECTIN (test code = FFN) NEGATIVE NEGATIVE DRUGS OF ABUSE SCREEN [id number] 12:29:00* Test Item Value Reference Range Interpretation Comments URN COCAINE (test code = COCAURN) NEGATIVE NEGATIVE URN CANNABINOIDS (test code = CANNABURN) NEGATIVE NEGATIVE URN AMPHETAMINE (test code = AMPHETURN) NEGATIVE NEGATIVE URN BARBITURATE (test code = BARBITURN) NEGATIVE NEGATIVE URN BENZODIAZEPINE (test code = BENZOURN) NEGATIVE NEGATIVE Cut-off value:200 ng/mL URN OPIATES (test code = OPIATURN) NEGATIVE NEGATIVE Cut-off value:2000 ng/mL URN PHENCYCLIDINE (PCP) (test code = PHENCURN) NEGATIVE NEGATIV E Cutoffs:Barbiturates 200 ng/mLBenzodiazepines 200 ng/mLTHC Cannabinoids 50 ng/mLOpiates(Morphine) 2000 ng/mLAmphetamine 1000 ng/mLCocaine 300 ng/mLPCP phencyclidine 25 ng/mL Unconfirmed screening results shouldnot be used for non-medical purposes. COMPREHENSIVE METABOLIC [id number] 12:29:00* Test Item Value Reference Range Interpretation Comments SODIUM (test code = NA) 137 mEq/L 134-147 N POTASSIUM (test code = K) 3.4 mEq/L 3.4-5.0 N CHLORIDE (test code = CL) 106 mEq/L 100-108 N CARBON DIOXIDE (test code = CO2) 23 mEq/L 21-33 N ANION GAP (test code = GAP) 11 0-20 N GLUCOSE (test code = GLU) 77 mg/dL 70-110 N BLOOD UREA NITROGEN (test code = BUN) 6 mg/dL 7-18 L GLOMERULAR FILTRATION RATE (test code = GFR) 194.5 110-120 H Units of measure = ml/min/1.73 m2 CREATININE (test code = CREAT) 0.4 mg/dL 0.6-1.3 L TOTAL PROTEIN (test code = PROT) 7.1 g/dL 6.4-8.2 N ALBUMIN (test code = ALB) 2.70 g/dL 3.4-5.0 L CALCIUM (test code = CA) 7.9 mg/dL 8.0-10.5 L BILIRUBIN TOTAL (test code = BILT) 0.40 mg/dL 0.0-1.0 N SGOT/AST (test code = AST) 12 IUnit/L 15-37 L SGPT/ALT (test code = ALT) 16 IUnit/L 15-65 N ALKALINE PHOSPHATASE TOTAL (test code = ALKP) 132 IUnit/L 20-125 H URIC [id number] 12:29:00* Test Item Value Reference Range Interpretation Comments URIC ACID (test code = URIC) 2.5 mg/dL 2.6-7.2 L LACTIC DEHYDROGENASE(LDH)2018-12-25 12:29:00* Test Item Value Reference Range Interpretation Comments LACTIC DEHYDROGENASE(LDH) (test code = LDH) 152 IUnits/L 84-246 N [id number] 12:29:00* Test Item Value Reference Range Interpretation Comments FIBRONECTIN (test code = FFN) NEGATIVE URINALYSIS [id number] 12:24:00* Test Item Value Reference Range Interpretation Comments UA COLOR (test code = COLU) YELLOW YEL/STRAW UA APPEARANCE (test code = APPU) CLEAR CLEAR UA GLUCOSE DIPSTICK (test code = DGLUU) NEGATIVE NEGATIVE UA BILIRUBIN DIPSTICK (test code = BILU) NEGATIVE NEGATIVE UA KETONE DIPSTICK (test code = KETU) NEGATIVE NEGATIVE UA SPECIFIC GRAVITY (test code = SGU) 1.003 1.005-1.030 L UA BLOOD DIPSTICK (test code = ZENAIDA) NEGATIVE NEGATIVE UA PH DIPSTICK (test code = MYRA) 8.0 5.0-7.0 H UA PROTEIN DIPSTICK (test code = PROU) NEGATIVE NEGATIVE UA UROBILINIOGEN DIPSTICK (test code = URO) 0.2 mg/dL 0.2-1.0 UA NITRITE DIPSTICK (test code = DENNY) NEGATIVE NEGATIVE UA LEUKOCYTE ESTERASE DIPSTICK (test code = LEUU) NEGATIVE NEGA TIVE UA WBC (test code = WBCU) 0-3 WBC/HPF 0-3 UA RBC (test code = RBCU) 0-3 RBC/HPF 0-3 UA BACTERIA (test code = BACU) NONE SEEN /HPF NONE SEEN UA SQUAMOUS CELLS (test code = SQU) 0-5 /HPF NONE SEEN Sodium [id number] 08:33:00* Test Item Value Reference Range Interpretation Comments Sodium Level (test code = 2951-2) 139 136-145 [facility] [id number] 08:33:00* Test Item Value Reference Range Interpretation Comments Potassium Level (test code = 2823-3) 4.2 3.5-5.1 [facility]Chloride [id number] 08:33:00* Test Item Value Reference Range Interpretation Comments Chloride Level (test code = 2075-0) 107 98-107 [facility] CenterCarbon Dioxide [id number] 08:33:00* Test Item Value Reference Range Interpretation Comments Carbon Dioxide Level (test code = 2028-9) 25 22-29 [facility] CenterAnion [id number] 08:33:00* Test Item Value Reference Range Interpretation Comments Anion Gap (test code = 31820-7) 11.2 8-16 [facility] CenterBlood Urea Mqlgmvwt6282-34-17 08:33:00* Test Item Value Reference Range Interpretation Comments Blood Urea Nitrogen (test code = 3094-0) 6 7-26 L [facility] CenterCreatinine2018-06-30 08:33:00* Test Item Value Reference Range Interpretation Comments Creatinine (test code = 2160-0) 0.71 0.57-1.11 [facility] CenterBUN/Creatinine Vaqdi0822-70-37 08:33:00* Test Item Value Reference Range Interpretation Comments BUN/Creatinine Ratio (test code = 3097-3) 8 6-25 [facility] CenterEstimat Glomerular Filtration Rate 2018-01-09 08:33:00* Test Item Value Reference Range Interpretation Comments Estimat Glomerular Filtration Rate (test code = 74976-1) 60- >60 Ranges were taken from the National Kidney Disease Education Program and the [facility] literature.Reference ranges:60 or greater: Znwjsy52-14 ( for 3 consecutive months): Chronic kidney disease 15 or less: Kidney failureLaredo Medical CenterGlucose Ysgux5579-23-28 08:33:00* Test Item Value Reference Range Interpretation Comments Glucose Level (test code = HIO4351) 79 74-118 [facility] CenterCalcium Fszmz9621-13-17 08:33:00* Test Item Value Reference Range Interpretation Comments Calcium Level (test code = 91190-0) 8.8 8.4-10.2 [facility] CenterWhite Blood Ckvyf8631-25-57 08:14:00* Test Item Value Reference Range Interpretation Comments White Blood Count (test code = 6690-2) 5.23 4.8-10.8 VERIFIED PREVIOUS RESULTSLaredo Medical CenterRed Blood Count 2018-01-09 08:14:00* Test Item Value Reference Range Interpretation Comments Red Blood Count (test code = 789-8) 3.95 3.6-5.1 [facility] CenterHemoglobin2018-06-30 08:14:00* Test Item Value Reference Range Interpretation Comments Hemoglobin (test code = 75092-9) 11.5 12.0-16.0 L [facility] CenterHematocrit2018-06-30 08:14:00* Test Item Value Reference Range Interpretation Comments Hematocrit (test code = 4544-3) 34.8 34.2-44.1 [facility] CenterMean Corpuscular Ytdncj7066-27-01 08:14:00* Test Item Value Reference Range Interpretation Comments Mean Corpuscular Volume (test code = 787-2) 88.1 81-99 [facility] CenterMean Corpuscular Owtopbdnex7382-36-38 08:14:00* Test Item Value Reference Range Interpretation Comments Mean Corpuscular Hemoglobin (test code = 785-6) 29.1 28-32 [facility] CenterMean Corpuscular Hemoglobin Concent 2018-01-09 08:14:00* Test Item Value Reference Range Interpretation Comments Mean Corpuscular Hemoglobin Concent (test code = 786-4) 33.0 31-35 [facility] CenterRed Cell Distribution Gwcjv8652-21-25 08:14:00* Test Item Value Reference Range Interpretation Comments Red Cell Distribution Width (test code = 38281-0) 13.2 11.7 -14.4 [facility] CenterPlatelet Nslyo2466-91-83 08:14:00* Test Item Value Reference Range Interpretation Comments Platelet Count (test code = 777-3) 231 140-360 [facility] CenterNeutrophils (%) (Auto)2018-01-09 08:14:00 * Test Item Value Reference Range Interpretation Comments Neutrophils (%) (Auto) (test code = 24585-7) 63.8 38.7-80.0 [facility] CenterLymphocytes (%) (Auto)2018-01-09 08:14:00 * Test Item Value Reference Range Interpretation Comments Lymphocytes (%) (Auto) (test code = 736-9) 22.6 18.0-39.1 [facility] CenterMonocytes (%) (Auto)2018-01-09 08:14:00* Test Item Value Reference Range Interpretation Comments Monocytes (%) (Auto) (test code = 5905-5) 8.6 4.4-11.3 [facility] CenterEosinophils (%) (Auto)2018-01-09 08:14:00 * Test Item Value Reference Range Interpretation Comments Eosinophils (%) (Auto) (test code = 713-8) 4.4 0.0-6.0 [facility] CenterBasophils (%) (Auto)2018-01-09 08:14:00* Test Item Value Reference Range Interpretation Comments Basophils (%) (Auto) (test code = 706-2) 0.4 0.0-1.0 [facility] CenterIM GRANULOCYTES %2018-01-09 08:14:00* Test Item Value Reference Range Interpretation Comments IM GRANULOCYTES % (test code = IM GRANULOCYTES %) 0.2 0.0- 1.0 [facility] CenterNeutrophils # (Auto)2018-01-09 08:14:00* Test Item Value Reference Range Interpretation Comments Neutrophils # (Auto) (test code = 751-8) 3.3 2.1-6.9 [facility] CenterLymphocytes # (Auto)2018-01-09 08:14:00* Test Item Value Reference Range Interpretation Comments Lymphocytes # (Auto) (test code = 41138-2) 1.2 1.0-3.2 [facility] CenterMonocytes # (Auto)2018-01-09 08:14:00* Test Item Value Reference Range Interpretation Comments Monocytes # (Auto) (test code = 742-7) 0.5 0.2-0.8 [facility] CenterEosinophils # (Auto)2018-01-09 08:14:00* Test Item Value Reference Range Interpretation Comments Eosinophils # (Auto) (test code = 711-2) 0.2 0.0-0.4 [facility] CenterBasophils # (Auto)2018-01-09 08:14:00* Test Item Value Reference Range Interpretation Comments Basophils # (Auto) (test code = 704-7) 0.0 0.0-0.1 [facility] CenterAbsolute Immature Granulocyte (auto 2018-01-09 08:14:00* Test Item Value Reference Range Interpretation Comments Absolute Immature Granulocyte (auto (ofelia t code = Absolute Immature Granulocyte (auto) 0.01 0-0.1 [facility] CenterUS [id number] 19:14:00 [place] [address] Patient Name: ALL SUMMERS MR #: [id number] : Age/Sex: 22/F Req #: [id number] Adm Physician: NALINI LUU MD Ordered by: NALINI JIANG MD Report #: [id number] Locatio n: [facility] Room/Bed: [place] [address] Procedure: [id number] US/ US TRANSVAGINAL Exam Date: 01/08/18 Exam Time: 1800 REPORT STATUS: Signed EXAM: Transabdominal and Transvaginal Pelvic Ultr asound INDICATION: COMPARISON: CT abdomen and pelvis 01/06/2018 TECHNIQUE: Grayscale transverse and sagittal transabdominal and transvaginal images were obtained of the pelvis. Transvaginal imaging was medically neces caity to better evaluate the endometrium and the adnexa. CLINICAL HISTORY: 22 year old A0; last menstrual period: 12/21/2017. FINDINGS: Uterus Orientation: Normal Size: 7.5 x 4.3 x 4.6 cm, Normal Mass: None. Prominent vessels surrounding the uterus. Cervix: Normal Endometrium: Thickness: 0.9 cm, Normal. Appearance: Homogeneous echotexture without focal thickening. Right ovary: Size: 2.8 x 2.5 x 2.7 cm Mass/Cyst: Few fo llicles measuring less than 2 cm Left ovary: Size: 2.5 x 2.0 x 1.9 cm M ass/Cyst: Few follicles measuring less than 2 cm Adnexa: Normal Cul-de -sac: No free fluid IMPRESSION: Unremarkable pelvic ultrasound exam. Previously noted right corpus luteal cyst has resolved. Signed by: Dr. Mallory Hsieh M.D. on 01/08/2018 7:18 PM Dictated By: LUPE HSIEH MD 17 COPY TO: NALINI JIANG MD CT BRAIN [id number] 09:30:00 [place] [address] Patient Name: ALL SUMMERS MR #: [id number] : 1995 Age/Sex: 22/F Req #: [id number] Adm Physician: NALINI JIANG MD Ordered by: NALINI JIANG MD Report #: [id number] Location: [facility] Room/Bed: [place] [address] Procedure: [id number] CT/ CT BRAIN WO Exam Date: 01/07/18 Exam Time: 0850 REPORT STATUS: Signed EXAMINATION: Head CT HISTORY: Headache, dizzine ss, blurry vision COMPARISON: None. TECHNIQUE: Multidetector axial images we re obtained without contrast from the foramen magnum to the vertex . The image s were reconstructed using brain and bone algorithms. Thin section brain imag es were reformatted into coronal and sagittal planes. Intravenous contrast: None. Motion/streaking artifact limits the evaluation of the skull base and p osterior cranial fossa. FINDINGS: Parenchyma: 1. No abnorma l densities. 2. No mass or hemorrhage. No CT evidence of acute territorial va scular insult. Extra-axial spaces:No abnormal density. No extra -axial fluid collections Brain volume: Normal for age. Ventricle s: No hydrocephalus or displacement. Arteries: No density suggestive of thrombus. Dural sinuses: No abnormal density. Extra-axial space s: No abnormal density. Foramen magnum: No mass, Chiari malformation, or basilar invagination. Sella: No obvious mass. Paranasal/mastoid sinuses: Imaged portions unremarkable. Skull/Scalp: No lytic or blastic lesions. No fractures. IMPRESSION: Normal head CT. Signed by: Dr. Naeem Ambrocio M.D. on 01/07/2018 10:05 AM Dictated By: NAEEM AMBROCIO MD 1005 Transcribed By: ALANA NEWTON on 01/07/18 1005 COPY TO: NALINI JIANG MD CT ABDOMEN/PELVIS [id number] 23:11:00 [place] [address] Patient Name: ALL SUMMERS MR #: [id number] : 1995 Age/Sex: 22/F Req #: [id number] Adm Physician: NALINI JIANG MD Ordered by: NALINI JIANG MD Report #: [id number] Location: [facility] Room/Bed: IMCU 177-1 Procedure: [id number] CT/ CT ABDOMEN/PELVIS W Exam Date: 01/06/18 Exam Time: 2 256 REPORT STATUS: Signed ADDENDUM #1 The rig ht ovarian corpus luteum/hemorrhagic cyst measures approximately 2.1 cm. Si gned by: Dr. Brice Rhodes MD on 01/08/2018 2:54 PM ORIGINAL REPORT * EXAM: CT Abdomen and Pelvis WITH contrast INDICATION: Acute abd ominal pain COMPARISON: None. TECHNIQUE: Abdomen and pelvis were scanned uti lizing a multidetector helical scanner from the lung base to the pubic symphys is after administration of IV contrast. Coronal and sagittal reformations were obtained. Routine protocol was performed. Scan was performed when during port al venous phase. IV CONTRAST: 100 mL of Isovue-370 O RAL CONTRAST: Water RADIATION DOSE: Total DLP: 167.87 mGy*cm Estimated effective dose: (DLP x 0.015 x size factor) mSv COMPLICATIONS: None FINDINGS: LINES and TUBES: None. LOWER THOR AX: Unremarkable HEPATOBILIARY: No focal hepatic lesions. No biliary ductal dilation. GALLBLADDER: No radio-opaque stones or sludge. No wall t hickening. SPLEEN: No splenomegaly. PANCREAS: No focal masses or duct al dilatation. ADRENALS: No adrenal nodules KIDNEYS/URETERS: Kid neys enhance symmetrically. No hydronephrosis. No cystic or solid mass lesion s. No stones. GI TRACT: No abnormal distention, wall thickening, or eviden ce of bowel obstruction. Appendix is normal. PELVIC ORGANS/BLADDER: There is a peripherally enhancing right ovarian corpus luteum cyst versus hem orrhagic cyst best noted on coronal series 301, image 37 and axial series 2, i mage 56. LYMPH NODES: No lymphadenopathy. VESSELS: Parametrial vessels and bilateral gonadal vein engorgement PERITONEUM / RETROPERITONEUM: Small amount of free fluid in the pelvis. BONES: Unremarkable. SOFT TISSUES: Unremarkable. IMPRESSION: 1. Acute abdominal pain may be related to right ovarian corpus luteum cyst versus hemorrhagic cyst. 2. Th e presence of a small amount pelvic fluid may suggest rupture of the cyst. 3 . Findings in the parametrial and bilateral gonadal veins are suggestive of p elvic congestion syndrome Signed by: Dr. Chago Rosa M.D. on 01/06/2018 11: 14 PM Dictated By: CHAGO BARAHONA MD 5725 Transcribed By: LAVELLE on 01/06/18 8612 COPY TO: NALINI JIANG MD Urine [id number] 22:41:00 * Test Item Value Reference Range Interpretation Comments Urine Test (test code = 2106-3) NEGATIVE NEGATIVE [facility]
[2019-12-14] MEDS ORDERED: SODIUM CHLORIDE 0.9% 1000ML 1,000 ML IV STA (09:04)
[2019-12-14] MEDS ORDERED: ONDANSETRON HCL INJ 2MG/ML 2ML 2 MG/ML VIAL IV STA (09:04)
[2019-12-14] MEDS ORDERED: PANTOPRAZOLE 40 MG 10ML VIAL IV STA (09:04)
[2019-12-14] MEDS ORDERED: DICYCLOMINE HCL 20 MG/2 ML VIAL IM ONE (09:15)
[2019-12-14 09:18] LABS: BASOPHILS % 0.8 % (0.0-1.0); EOSINOPHILS # (AUTO) 0.1 (0.0-0.4); EOSINOPHILS % 1.4 % (0.0-6.0); HEMATOCRIT 33.3 % (34.2-44.1); HEMOGLOBIN 10.4 g/dL (12.0-16.0); LYMPHOCYTES # (AUTO) 1.4 (1.0-3.2); LYMPHOCYTES % 27.3 % (18.0-39.1); MEAN CORPUSCULAR HEMOGLOBIN 24.1 pg (28-32); MEAN CORPUSCULAR HGB CONC 31.2 g/dL (31-35); MEAN CORPUSCULAR VOLUME 77.1 fL (81-99); MONOCYTES # (AUTO) 0.4 (0.2-0.8); MONOCYTES % 7.8 % (4.4-11.3); NEUTROPHILS # (AUTO) 3.2 (2.1-6.9); NEUTROPHILS % 62.5 % (38.7-80.0); PLATELET COUNT 449 x10e3/uL (140-360); RED BLOOD COUNT 4.32 x10e6/uL (3.6-5.1); RED CELL DISTRIBUTION WIDTH 15.1 % (11.7-14.4)
[2019-12-14 09:25] LABS: PREGNANCY TEST, URINE NEGATIVE (NEGATIVE)
[2019-12-14 09:26] LABS: BILIRUBIN,URINE NEGATIVE (NEGATIVE); CLARITY,URINE CLEAR (CLEAR); COLOR,URINE YELLOW (YELLOW); KETONES,URINE NEGATIVE (NEGATIVE); LEUKOCYTE ESTERASE ,URINE TRACE (NEGATIVE); NITRITE,URINE NEGATIVE (NEGATIVE); PROTEIN,URINE DIPSTICK NEGATIVE (NEGATIVE); URINE UROBILINOGEN 0.2 mg/dL (0.2 - 1)
[2019-12-14 09:42] LABS: ALANINE AMINOTRANSFERASE 16 IU/L (0-55); ALBUMIN 3.7 g/dL (3.5-5.0); ALBUMIN/GLOBULIN RATIO 0.9 (0.8-2.0); ALKALINE PHOSPHATASE 114 IU/L (40-150); ANION GAP 12.9 mmol/L (8-16); BLOOD UREA NITROGEN 11 mg/dL (7-26); BUN/CREATININE RATIO 16 (6-25); CARBON DIOXIDE 23 mmol/L (22-29); CHLORIDE 106 mmol/L (98-107); EST GLOMERULAR FILTRATION RATE > 60 ML/MIN (60-); GLUCOSE 75 mg/dL (74-118); POTASSIUM 3.9 mmol/L (3.5-5.1); SODIUM 138 mmol/L (136-145)
[2019-12-14] MEDS ORDERED: IOPAMIDOL 370 MG/ML 200 ML INFUS..BTL INJ ONE (09:58)
[2019-12-14] MEDS ORDERED: SODIUM CHLORIDE 0.9% 50ML 50 ML ONE (09:58)
[2019-12-14 10:04] LABS: RBC,URINE 0-5 /HPF (0-5)
[2019-12-14 10:05] LABS: BACTERIA,URINE FEW /HPF; EPITHELIAL CELLS,URINE MANY /LPF
[2019-12-14] MEDS ORDERED: PIPER-TAZ 3.375 GM 50 ML IV ONE (10:30)
--- NOTE | 2019-12-14 10:39 | Emergency Department Note ---
History of Present Illnes History of Present Illness Chief Complaint: General Medicine Complaints History of Present Illness This is a 24 year old female HERE FOR LOWER ABDOMINAL PAIN WHICH HAS BEEN INTERMITTENT X 1 YEAR RECENTLY DX'D WITH POSSIBLE INFLAMMATORY BOWEL DZ BY PCP (DR JIANG) WITH LAB WORKUP, REFERRAL TO DR Kaitlyn SPICER. ABD PAIN WORSE AND WEAKNESS FOR THE LAST 3 DAYS, DENIES FEVER, DENIES URINARY SYMPTOMS, DENIES DIARRHEA, NAUSEA AND VOMITING. Historian: Patient Arrival Mode: Car Manager Tax Required: No Onset (how long ago): day(s) (3) Location: ABD Quality: PAIN Radiation: non-radiation Severity: severe Onset quality: gradual Duration (how long): day(s) (3) Timing of current episode: constant Progression: worsening Chronicity: chronic Context: recent illness Relieving factors: none Exacerbating factors: none Associated symptoms: weakness Treatments prior to arrival: none Past Medical/Family History Physician Review I have reviewed the patient's past medical and family history. Any updates have been documented here. Past Medical History Recent Fever: No Clinical Suspicion of Infectio: No New/Unexplained Change in Ment: No Past Medical History: Anxiety, Depression, Other Mental Illness Other Surgery: MASS REMOVED FROM RIGHT BREAST Social History Smoking Cessation: Never Smoker Counseling Performed: No Alcohol Use: None Any Illegal Drug Use: No TB Exposure/Symptoms: No Physically hurt or threatened: No Family History Family history of heart diseas: No Other Last Tetanus: UTD Any Pre-Existing Lines (PICC,: No Is patient up to date on immun: Yes Review of Systems Review of Systems Constitutional: no symptoms EENTM: no symptoms Cardiovascular: no symptoms Respiratory: no symptoms Gastrointestinal: as per HPI, abdominal pain Genitourinary: no symptoms Musculoskeletal: no symptoms Neurological: no symptoms Psychological: no symptoms Endocrine: no symptoms Hematological/Lymphatic: no symptoms Review of other systems All other systems reviewed and negative. Physical Exam Related Data Allergies: Coded Allergies: cephalexin (Verified Allergy, Unknown, 01/06/18) Triage Vital Signs Vital Signs Date Time Temp Pulse Resp B/P (MAP) Pulse Ox O2 Delivery O2 Flow Rate FiO2 12/14/19 08:48 97.9 70 16 120/84 100 Vital signs reviewed: Yes Physical Exam CONSTITUTIONAL Constitutional: well-developed, well-nourished HENT HENT: normocephalic, atraumatic, oropharynx clear/moist, nose normal HENT L/R: left ext ear normal, right ext ear normal EYES Eyes: PERRL, conjunctivae normal NECK Neck: ROM normal PULMONARY Pulmonary: effort normal, breath sounds normal CARDIOVASCULAR Cardiovascular: regular rhythm, heart sounds normal, capillary refill normal, normal rate GASTROINTESTINAL Abdominal: soft, tender (MODERATE TENDERNESS RLQ WITHOUT R/G); left CVA tenderness, right CVA tenderness GENITOURINARY Genitourinary: exam deferred SKIN Skin: warm, dry MUSCULOSKELETAL Musculoskeletal: ROM normal NEUROLOGICAL Neurological: alert, oriented x 3, no gross motor or sensory deficits PSYCHOLOGICAL Psychological: mood/affect normal, judgement normal Results Laboratory Result Diagram: 12/14/19 0900 12/14/19 0900 Laboratory Laboratory Tests Test 12/14/19 09:00 White Blood Count 5.16 x10e3/uL (4.8-10.8) Red Blood Count 4.32 x10e6/uL (3.6-5.1) Hemoglobin 10.4 g/dL (12.0-16.0) Hematocrit 33.3 % (34.2-44.1) Mean Corpuscular Volume 77.1 fL (81-99) Mean Corpuscular Hemoglobin 24.1 pg (28-32) Mean Corpuscular Hemoglobin Concent 31.2 g/dL (31-35) Red Cell Distribution Width 15.1 % (11.7-14.4) Platelet Count 449 x10e3/uL (140-360) Neutrophils (%) (Auto) 62.5 % (38.7-80.0) Lymphocytes (%) (Auto) 27.3 % (18.0-39.1) Monocytes (%) (Auto) 7.8 % (4.4-11.3) Eosinophils (%) (Auto) 1.4 % (0.0-6.0) Basophils (%) (Auto) 0.8 % (0.0-1.0) Neutrophils # (Auto) 3.2 (2.1-6.9) Lymphocytes # (Auto) 1.4 (1.0-3.2) Monocytes # (Auto) 0.4 (0.2-0.8) Eosinophils # (Auto) 0.1 (0.0-0.4) Basophils # (Auto) 0.0 (0.0-0.1) Absolute Immature Granulocyte (auto 0.01 x10e3/uL (0-0.1) Urine Color Yellow (YELLOW) Urine Clarity Clear (CLEAR) Urine pH 7 (5 - 7) Urine Specific [place] >=1.030 (1.010-1.025) Urine Protein Negative (NEGATIVE) Urine Glucose (UA) Negative (NEGATIVE) Urine Ketones Negative (NEGATIVE) Urine Blood Negative (NEGATIVE) Urine Nitrite Negative (NEGATIVE) Urine Bilirubin Negative (NEGATIVE) Urine Urobilinogen 0.2 mg/dL (0.2 - 1) Urine Leukocyte Esterase Trace (NEGATIVE) Urine RBC 0-5 /HPF (0-5) Urine WBC 11-20 /HPF (0-5) Urine Epithelial Cells Many /LPF (NONE) Urine Bacteria Few /HPF (NONE) Urine Test Negative (NEGATIVE) Sodium Level 138 mmol/L (136-145) Potassium Level 3.9 mmol/L (3.5-5.1) Chloride Level 106 mmol/L (98-107) Carbon Dioxide Level 23 mmol/L (22-29) Anion Gap 12.9 mmol/L (8-16) Blood Urea Nitrogen 11 mg/dL (7-26) Creatinine 0.70 mg/dL (0.57-1.11) Estimat Glomerular Filtration Rate > 60 ML/MIN (60-) BUN/Creatinine Ratio 16 (6-25) Glucose Level 75 mg/dL (74-118) Calcium Level 9.0 mg/dL (8.4-10.2) Magnesium Level 2.0 MG/DL (1.3-2.1) Total Bilirubin 0.3 mg/dL (0.2-1.2) Aspartate Amino Transf (AST/SGOT) 17 IU/L (5-34) Alanine Aminotransferase (ALT/SGPT) 16 IU/L (0-55) Alkaline Phosphatase 114 IU/L (40-150) Total Protein 7.7 g/dL (6.5-8.1) Albumin 3.7 g/dL (3.5-5.0) Globulin 4.0 g/dL (2.3-3.5) Albumin/Globulin Ratio 0.9 (0.8-2.0) Lab results reviewed: Yes Imaging Imaging results reviewed: Yes Impressions EXAM: CT Abdomen and Pelvis WITH intravenous contrast INDICATION: Right lower quadrant abdominal pain COMPARISON: None. TECHNIQUE: Abdomen and pelvis were scanned utilizing a multidetector helical scanner from the lung base to the pubic symphysis after administration of IV contrast. Coronal and sagittal reformations were obtained. Routine protocol was performed. Scan was performed during portal venous phase. IV CONTRAST: 100mL of Isovue 370 ORAL CONTRAST: None RADIATION DOSE: Total DLP: 187 mGy*cm Dose modulation, iterative reconstruction, and/or weight based adjustment of the mA/kV was utilized to reduce the radiation dose to as low as reasonably achievable. FINDINGS: LOWER THORAX: Normal. HEPATOBILIARY: No focal liver lesion. No biliary ductal dilation. Mild diffuse hepatic steatosis. Unremarkable gallbladder. SPLEEN: No splenomegaly. PANCREAS: No focal masses or ductal dilatation. ADRENALS: No adrenal nodules. KIDNEYS/URETERS: No hydronephrosis, stones, or solid mass lesions. PELVIC ORGANS/BLADDER: Adnexal cysts measure up to 3.8 cm on the left and 3.3 cm on the right. PERITONEUM / RETROPERITONEUM: No free air or fluid. LYMPH NODES: No lymphadenopathy. VESSELS: Unremarkable. GI TRACT: No abnormal bowel thickening. No bowel obstruction. Normal appendix. BONES AND SOFT TISSUES: No acute osseous injury. No suspicious lytic or blastic lesions. IMPRESSION: No acute findings in the abdomen or pelvis. Specifically, normal appendix. Bilateral adnexal cysts, likely physiologic in this young patient. Signed by: Marielle Scott MD on 12/14/2019 10:45 AM Critical Care Time Subsequent provider I assumed direction of critical care for this patient from another provider of my specialty. Assessment & Plan Reassessment Reassessment ABD PAIN, TENDER IN RLQ - CHECK CBC, CHEM'S, LIPASE, UA/CX, UR PREG, CT ABD/PELVIS - R/O , UTI, APPENDICITIS, EVID OF COLITIS ON CT, OVARIAN CYST Assessment & Plan Final Impression: (1) UNSPECIFIED ABDOMINAL PAIN (2) UNSPECIFIED OVARIAN CYST, UNSPECIFIED SIDE Assessment & Plan DC HOME, F/U PCP AND TATE LORENZO Depart Disposition: HOME, SELF-CARE Last Vital Signs Date Time Temp Pulse Resp B/P (MAP) Pulse Ox O2 Delivery O2 Flow Rate FiO2 12/14/19 08:48 97.9 70 16 120/84 100 Home Meds Reported Medications [diclofenac] No Conflict Check, 75 MG PO BID 01/10/18 Norethindrone A-E Estradiol (MICROGESTIN) 1 Each Tablet, 1 TAB PO DAILY 10/21/15 Medications in the ED Pantoprazole Sodium 40 mg ONCE STAT IV Last administered on 12/14/19at 09:40; Admin Dose 40 MG; Start 12/14/19 at 09:04; Stop 12/14/19 at 09:22; Status DC Ondansetron HCl 4 mg ONCE STAT IV Last administered on 12/14/19at 09:40; Admin Dose 4 MG; Start 12/14/19 at 09:04; Stop 12/14/19 at 09:22; Status DC Sodium Chloride 1,000 ml @ 0 mls/hr Q0M STAT IV Last administered on 12/14/19at 09:40; Admin Dose 1,000 MLS/HR; Start 12/14/19 at 09:04; Stop 12/14/19 at 09:06; Status DC Dicyclomine HCl 20 mg ONCE ONCE IM ; Start 12/14/19 at 09:15; Stop 12/14/19 at 09:16; Status DC Sodium Chloride 50 ml @ ud STK-MED ONCE .ROUTE ; Start 12/14/19 at 09:58; Stop 12/14/19 at 09:53; Status DC Iopamidol 74,000 mg STK-MED ONCE INJ ; Start 12/14/19 at 09:58; Stop 12/14/19 at 09:53; Status DC Piperacillin Sod/ Tazobactam Sod 50 ml @ 50 mls/hr NOW ONCE IV ; Start 12/14/19 at 10:30; Stop 12/14/19 at 11:29; Status UNANTONI DIAZ MD Dec 14, 2019 10:39
--- NOTE | 2019-12-14 10:48 | Diagnostic Imaging Report ---
EXAM: CT Abdomen and Pelvis WITH intravenous contrast INDICATION: Right lower quadrant abdominal pain COMPARISON: None. TECHNIQUE: Abdomen and pelvis were scanned utilizing a multidetector helical scanner from the lung base to the pubic symphysis after administration of IV contrast. Coronal and sagittal reformations were obtained. Routine protocol was performed. Scan was performed during portal venous phase. IV CONTRAST: 100mL of Isovue 370 ORAL CONTRAST: None RADIATION DOSE: Total DLP: 187 mGy*cm Dose modulation, iterative reconstruction, and/or weight based adjustment of the mA/kV was utilized to reduce the radiation dose to as low as reasonably achievable. FINDINGS: LOWER THORAX: Normal. HEPATOBILIARY: No focal liver lesion. No biliary ductal dilation. Mild diffuse hepatic steatosis. Unremarkable gallbladder. SPLEEN: No splenomegaly. PANCREAS: No focal masses or ductal dilatation. ADRENALS: No adrenal nodules. KIDNEYS/URETERS: No hydronephrosis, stones, or solid mass lesions. PELVIC ORGANS/BLADDER: Adnexal cysts measure up to 3.8 cm on the left and 3.3 cm on the right. PERITONEUM / RETROPERITONEUM: No free air or fluid. LYMPH NODES: No lymphadenopathy. VESSELS: Unremarkable. GI TRACT: No abnormal bowel thickening. No bowel obstruction. Normal appendix. BONES AND SOFT TISSUES: No acute osseous injury. No suspicious lytic or blastic lesions. IMPRESSION: No acute findings in the abdomen or pelvis. Specifically, normal appendix. Bilateral adnexal cysts, likely physiologic in this young patient. Signed by: Marielle Scott MD on 12/14/2019 10:45 AM
== END 2019-12-14 11:37 | disposition home or self-care (01) ==
LOC: ER 08:59
DX: R10.31 Right lower quadrant pain (principal); N83.202 Unspecified ovarian cyst, left side; N83.201 Unspecified ovarian cyst, right side; F41.9 Anxiety disorder, unspecified; F32.9 Major depressive disorder, single episode, unspecified
CPT/HCPCS: 36415; 74177; 80053; 81001; 81025; 83735; 85025; 87086; 99283; C9113; J2405; J7030; Q9967

== ENCOUNTER 2022-01-16 20:14 | Emergency (ER) | payer SELFPAY ==
[~2022-01-16] VITALS: Ht 149.9 cm; Wt 52.6 kg
[2022-01-16] MEDS ORDERED: PREDNISONE 20 MG TAB PO ONE (20:30)
[2022-01-16] MEDS ORDERED: KETOROLAC TROMETHAMINE 30 MG/ML VIAL IV ONE (20:30)
[2022-01-16] MEDS ORDERED: ACETAMINOPHEN 325 MG TAB PO ONE (20:30)
[2022-01-16] MEDS ORDERED: ACETAMINOPHEN500 MG PO (21:16)
[2022-01-16] MEDS ORDERED: IBUPROFEN200 MG PO (21:16)
[2022-01-16] MEDS ORDERED: ONDANSETRON ODT4 MG PO (21:16)
[2022-01-16] MEDS ORDERED: ACETAMINOPHEN 325 MG TAB ONE (21:18)
[2022-01-16] MEDS ORDERED: PREDNISONE 20 MG TAB ONE (21:18)
[2022-01-16] MEDS ORDERED: KETOROLAC TROMETHAMINE 30 MG/ML VIAL ONE (21:18)
[2022-01-16] MEDS ORDERED: ONDANSETRON HCL INJ 2MG/ML 2ML 2 MG/ML VIAL ONE (21:24)
== END 2022-01-16 21:45 | disposition home or self-care (01) ==
LOC: FSED 20:22
DX: R07.89 Other chest pain (principal); F41.9 Anxiety disorder, unspecified; F32.A Depression, unspecified
CPT/HCPCS: 71046; 80053; 85025; 93005; 99283; J1885; J2405; J7512